=== PATIENT | female | born 1930 | race Caucasian/White ===

== ENCOUNTER 2019-09-01 20:54 | Observation (INO) ==
--- NOTE | 2019-09-01 21:18 | Emergency Department Note ---
ED Disposition Clinical Impression: UGIB (upper gastrointestinal bleed), Paraesophageal hernia, Esophagitis, Renal insufficiency Disposition: Admitted as Observation Condition on Discharge: Fair Instructions: DI for Gastrointestinal Bleeding Referrals: Mark Coleman MD [Primary Care Provider] - - Critical Care Critical Care Time: No Attestation: On 09/01/19, the high probability of a clinically significant, sudden or life threatening deterioration of the following system(s) required my full and direct attention, intervention and personal management. The time I documented below is in addition to time spent performing reported procedures but includes the following listed in this critical care notation. Medical Decision Making - Medical Records Medical records reviewed: Yes: I reviewed the patient's medical records. - [place] Inquiry Pt receiving controlled substance: No Vital Signs: 09/01/19 21:02 Temperature 98.9 F Temperature Source Oral Pulse Rate [Left Radial] 100 H Respiratory Rate 17 Blood Pressure [Right Arm] 127/69 Blood Pressure Mean [Right Arm] 88 Blood Pressure Source [Right Arm] Automatic Cuff Blood Pressure Position [Right Arm] Sitting 02 Sat by Pulse Oximetry 93 L - Lab Data Lab results reviewed: Yes: I reviewed the patient's lab results. Lab Results 09/01/19 21:25: WBC 12.2 H, RBC 4.97, Hgb 14.7, Hct 47.3 H, MCV 95.2, MCH 29.5, MCHC 31.0 L, RDW 13.7, Plt Count 279, MPV 9.2, Neut % (Auto) 78.5, Lymph % (Auto) 12.6, [place] % (Auto) 6.6, Eos % (Auto) 1.8, Baso % (Auto) 0.6, Neut # (Auto) 9.6 H, Lymph # (Auto) 1.5, [place] # (Auto) 0.8, Eos # (Auto) 0.2, Baso # (Auto) 0.1 09/01/19 21:25: Sodium 142, Potassium 4.2, Chloride 105, Carbon Dioxide 28, Anion Gap 13.2, BUN 27 H, Creatinine 1.22 H, Estimated Creat Clear 41, Estimated GFR 42 L, Est GFR ( Amer) 50 L, Glucose 168 H, Calcium 9.1, Total Bilirubin 0.3, AST 13 L, ALT 18, Alkaline Phosphatase 86, Total Protein 7.8, Albumin 3.3 L, Globulin 4.5 H, Albumin/Globulin Ratio 0.7 L, Amylase 37, Lipase 134 09/01/19 22:00: Stool Occult Blood Positive A Result diagrams: 09/01/19 21:25 09/01/19 21:25 Orders (Tests/Meds): ED MEDICATIONS Generic Name Dose Route Start Last Admin Trade Name Freq PRN Reason Stop Dose Admin Sodium Chloride 1,000 mls @ 100 mls/hr 09/01/19 21:15 09/01/19 22:32 Sod Chlor 0.9% 1000ml Bag IV 10/01/19 21:14 100 mls/hr .Q10H CHRAIS Administration Sodium Chloride 8 ml 09/01/19 21:57 Sodium Chloride 0.9% 10ml Vial IV 10/01/19 21:56 NEEDED PRN dilute pepcid Discontinued Medications Generic Name Dose Route Start Last Admin Trade Name Freq PRN Reason Stop Dose Admin Famotidine 20 mg 09/01/19 21:57 09/01/19 22:32 Pepcid 20mg/2ml Vial IV 09/01/19 21:58 20 mg ONCE ONE Administration Metoclopramide HCl 10 mg 09/01/19 21:57 09/01/19 22:32 Reglan 10mg/2ml Vial IVP 09/01/19 21:58 10 mg ONCE ONE Administration Ondansetron HCl 4 mg 09/01/19 21:58 09/01/19 22:32 Zofran 4mg/2ml Vial IV 09/01/19 21:59 4 mg ONCE ONE Administration ORDERS Category Date Time Status CT abdomen pelvis wo con Stat Cat Scan 09/01/19 21:15 Taken XR chest AP Stat Exams 09/01/19 21:23 Taken - Radiology Data #1 Image(s): Chest Image Reviewed: Yes I reviewed the patient's radiology image Preliminary Findings: Normal/NAD - CT Data CT Scan: Abdomen, Pelvis Time Received: 22:[address] Reviewed: Yes: I have viewed the radiologist's interpretation Preliminary Findings: Abnormal (esophagitis ) GI Bleed HPI - General Chief complaint: GI Bleed Stated complaint: vomiting blood Time Seen by Provider: 09/01/19 21:10 Mode of Arrival: EMS Source of Information: Patient, Relative, EMS, Medical Record Limitations: No Limitations Description of Symptoms (Recalled from ER Triage Doc. by RN): per nurse at [facility] pt has been vomiting blood since at least 3pm when she arrived on shift today but is unsure how long before that. - History of Present Illness HPI Narrative: has bloody vomitus since this afternoon with upper abd pain at [facility] - no melena reported MD complaint: gross hematemesis Onset (ago): hour(s) Consistency: intermittent Severity: moderate Associated symptoms: abdominal pain Treatments Prior to Arrival: none - Related Data Allergies Allergy/AdvReac Type Severity Reaction Status Date / Time penicillin G [PENICILLIN G] Allergy Unknown Verified 09/01/19 22:31 CHOCOLATE (FOOD) AdvReac Mild ACID REFLUX Uncoded 11/11/17 14:10 [facility] History - Hepatitis A Screen Drug use history?: No High risk sexual behaviors?: No History of sexually transmitted infection?: No Currently employed?: No Childcare worker?: No Do you have indoor plumbing?: Yes Do you have electricity?: Yes Attestation statement:: This patient has been screened for Hepatitis A risk factors. I have reviewed the patient's past medical history: Yes - Social History Alcohol Intake: never Occupational Status: other ROS Obtained: Yes All systems reviewed & no additional complaints - Constitutional Constitutional: Denies fever(s) - Eyes Eyes: Denies change in vision - ENT Ears, Nose, Mouth, and Throat: Denies sore throat - Cardiovascular Cardiovascular: Denies chest pain - Respiratory Respiratory: No cough - Gastrointestinal Gastrointestingal: Reports: as per HPI, abdominal pain, vomiting blood, nausea, vomiting - Genitourinary Female Genitourinary: Denies hematuria - Musculoskeletal Musculoskeletal: Denies joint pain - Integumentary/Breasts Skin/Breast: Denies rash - Neurologic Neurologic: Denies seizure-like activity Physical Exam - General General appearance: alert, in no apparent distress - Head Head exam: normocephalic - Eye Eye exam: Present: PERRL, EOMI. Absent: scleral icterus - ENT ENT exam: Present: mucous membranes dry - Neck Neck exam: Present: trachea midline - Respiratory Respiratory exam: Present: other (dec bs bilat ). Absent: respiratory distress - Cardiovascular Cardiovascular exam: Present: regular rate, systolic murmur, +S4 - Abdominal Exam Abdominal exam: Present: soft, tenderness, diminished bowel sounds Abdominal tenderness: Present: epigastrium, moderate - Extremities Exam Extremities exam: Absent: calf tenderness - Neurological Exam Neurological exam: Present: alert, CN II-XII intact - Skin Skin exam: Absent: rash
[2019-09-01 21:35] LABS: Basophils # 0.1 K/mm3 (0-0.2); Basophils % 0.6 % (0.1-2.0); Eosinophils # 0.2 K/mm3 (0.0-0.4); Eosinophils % 1.8 % (0.1-12.0); Hematocrit 47.3 % (37.0-47.0); Hemoglobin 14.7 g/dL (12.2-16.2); Lymphocytes # 1.5 K/mm3 (0.7-4.5); Lymphocytes % 12.6 % (10-50); Mean Corpuscular Volume 95.2 fl (81-99); Mean Platelet Volume 9.2 fl (7.4-10.4); Monocytes # 0.8 K/mm3 (0.1-1.0); Monocytes % 6.6 % (1.7-9.3); Neutrophils # 9.6 K/mm3 (1.8-7.8); Neutrophils % 78.5 % (37.0-80.0); Platelet Count 279 K/mm3 (142-424); Red Blood Count 4.97 M/mm3 (4.20-5.40); Red Cell Distribution Width 13.7 % (11.5-17.5); White Blood Count 12.2 K/mm3 (4.8-10.8)
[2019-09-01 21:42] LABS: Albumin Level 3.3 gm/dL (3.4-5.0); Albumin/Globulin Ratio 0.7 (1.1-1.8); Anion Gap 13.2 mEq/L (5-15); Bilirubin,Total 0.3 mg/dL (0.2-1.0); Calcium 9.1 mg/dL (8.5-10.1); Globulin 4.5 gm/dl (1.3-3.2); Total Protein,Serum 7.8 gm/dL (6.4-8.2)
[2019-09-02 07:42] LABS: Basophils # 0.1 K/mm3 (0-0.2); Basophils % 0.6 % (0.1-2.0); Eosinophils # 0.3 K/mm3 (0.0-0.4); Eosinophils % 2.4 % (0.1-12.0); Hematocrit 40.7 % (37.0-47.0); Lymphocytes # 1.8 K/mm3 (0.7-4.5); Lymphocytes % 16.7 % (10-50); Mean Corpuscular HGB Conc 30.8 g/dL (31.8-35.4); Mean Corpuscular Volume 94.8 fl (81-99); Mean Platelet Volume 9.3 fl (7.4-10.4); Monocytes # 1.2 K/mm3 (0.1-1.0); Neutrophils # 7.3 K/mm3 (1.8-7.8); Neutrophils % 69.4 % (37.0-80.0); Platelet Count 204 K/mm3 (142-424); Red Blood Count 4.29 M/mm3 (4.20-5.40); Red Cell Distribution Width 13.9 % (11.5-17.5); White Blood Count 10.5 K/mm3 (4.8-10.8)
[2019-09-02 07:43] LABS: Hemoglobin 12.5 g/dL (12.2-16.2)
--- NOTE | 2019-09-02 07:56 | H&P/Discharge Summary ---
General - General Admission date:: 09/02/19 Discharge date: 09/02/19 *Admission Date: 09/01/19 *Chief complaint: Vomiting blood *History of present illness: 89-year-old white female, resident of the [facility], who has made a DNR status for several years, was brought to the emergency department because she had been reportedly vomiting blood for 5 or 6 hours at the [facility]. Nurses reported that this was "bright red blood" and she had done this since 3 PM yesterday. In the emergency room she was found to be hemodynamically stable, her initial hemoglobin was 14 which certainly spoke against a rapid upper GI bleed. She was found to have guaiac positive stools, was admitted to hospital for further diagnostic testing and observation overnight. This morning she states she feels good except she is "sleepy." [facility] History I have reviewed the patient's past medical history: Yes Medical History: Reports:: Renal Insufficiency *Have you ever received a pneumonia vaccine?: No (unable to obtain) *Have you received a flu vaccine this season?: No (unable to obtain) Other Medical History: Reports: Anemia - *Social History Alcohol Intake: never *Occupational Status:: retired Housing: [facility] *Travel in the last 8 weeks: None Family Hx:: Unable to obtain Review of Systems - Review of Systems Review of systems:: pertinent systems reviewed and negative unless documented below - *Neurologic Denies seizure-like activity Exam Vital signs and Labs for Last 24 Hours: Temp Pulse Resp BP Pulse Ox 98.8 F 100 H 17 143/78 H 92 L 09/02/19 04:00 09/02/19 04:00 09/02/19 04:00 09/02/19 04:00 09/02/19 04:00 Laboratory Results - last 24 hr 09/01/19 21:25: WBC 12.2 H, RBC 4.97, Hgb 14.7, Hct 47.3 H, MCV 95.2, MCH 29.5, MCHC 31.0 L, RDW 13.7, Plt Count 279, MPV 9.2, Neut % (Auto) 78.5, Lymph % (Auto) 12.6, [place] % (Auto) 6.6, Eos % (Auto) 1.8, Baso % (Auto) 0.6, Neut # (Auto) 9.6 H, Lymph # (Auto) 1.5, [place] # (Auto) 0.8, Eos # (Auto) 0.2, Baso # (Auto) 0.1 09/01/19 21:25: Sodium 142, Potassium 4.2, Chloride 105, Carbon Dioxide 28, Anion Gap 13.2, BUN 27 H, Creatinine 1.22 H, Estimated Creat Clear 41, Estimated GFR 42 L, Est GFR ( Amer) 50 L, Glucose 168 H, Calcium 9.1, Total Bilirubin 0.3, AST 13 L, ALT 18, Alkaline Phosphatase 86, Total Protein 7.8, Albumin 3.3 L, Globulin 4.5 H, Albumin/Globulin Ratio 0.7 L, Amylase 37, Lipase 134 09/01/19 22:00: Stool Occult Blood Positive A 09/02/19 02:15: Troponin I < 0.02 09/02/19 07:08: WBC 10.5, RBC 4.29, Hgb 12.5 D, Hct 40.7, MCV 94.8, MCH 29.2, MCHC 30.8 L, RDW 13.9, Plt Count 204 D, MPV 9.3, Neut % (Auto) 69.4, Lymph % (Auto) 16.7, [place] % (Auto) 11.0 H, Eos % (Auto) 2.4, Baso % (Auto) 0.6, Neut # (Auto) 7.3, Lymph # (Auto) 1.8, [place] # (Auto) 1.2 H, Eos # (Auto) 0.3, Baso # (Auto) 0.1 I & O for Last 24 hours: Intake & Output 08/30/19 08/31/19 09/01/19 09/02/19 11:59 11:59 11:59 11:59 Intake Total 544 / 544 Output Total 600 / 600 Balance -56 / -56 Weight 148 lb 2 oz Narrative: Patient is sleeping but oriented x2 when arousable. She recognizes me. Oropharynx clear, no evidence of blood in the oropharynx. Heart rate regular. Lungs are clear bilaterally. Abdomen soft and nontender. Lorenzo catheter draining clear yellow urine. Perfusion is good in the extremities. Able to move all extremities well. Hospital Course Hospital Course: Patient was admitted. Overnight she did well, no evidence of bleeding. Hemoglobin this morning is 12.5 g. Given this patient's advanced age, DNR status and multiple comorbidities, endoscopy is not in this patient's best interest. She clearly does not have a major bleed given the lack of significant hemoglobin drop. We will transfer back to [facility] with proton pump inhibitor, H2 corbin and Carafate and check a hemoglobin next week. We will reintroduce soft mechanical diet. Otherwise medications will remain the same. Continue to respect her DNR status. Results Labs on day of discharge: Labs from last 24 hours 09/02/19 09/02/19 09/01/19 07:08 02:15 22:00 WBC 10.5 RBC 4.29 Hgb 12.5 D Hct 40.7 MCV 94.8 MCH 29.2 MCHC 30.8 L RDW 13.9 Plt Count 204 D MPV 9.3 Neut % (Auto) 69.4 Lymph % (Auto) 16.7 [place] % (Auto) 11.0 H Eos % (Auto) 2.4 Baso % (Auto) 0.6 Neut # (Auto) 7.3 Lymph # (Auto) 1.8 [place] # (Auto) 1.2 H Eos # (Auto) 0.3 Baso # (Auto) 0.1 Sodium Potassium Chloride Carbon Dioxide Anion Gap BUN Creatinine Estimated Creat Clear Estimated GFR Est GFR ( Amer) Glucose Calcium Total Bilirubin AST ALT Alkaline Phosphatase Troponin I < 0.02 Total Protein Albumin Globulin Albumin/Globulin Ratio Amylase Lipase Stool Occult Blood Positive A 09/01/19 09/01/19 21:25 21:25 WBC 12.2 H RBC 4.97 Hgb 14.7 Hct 47.3 H MCV 95.2 MCH 29.5 MCHC 31.0 L RDW 13.7 Plt Count 279 MPV 9.2 Neut % (Auto) 78.5 Lymph % (Auto) 12.6 [place] % (Auto) 6.6 Eos % (Auto) 1.8 Baso % (Auto) 0.6 Neut # (Auto) 9.6 H Lymph # (Auto) 1.5 [place] # (Auto) 0.8 Eos # (Auto) 0.2 Baso # (Auto) 0.1 Sodium 142 Potassium 4.2 Chloride 105 Carbon Dioxide 28 Anion Gap 13.2 BUN 27 H Creatinine 1.22 H Estimated Creat Clear 41 Estimated GFR 42 L Est GFR ( Amer) 50 L Glucose 168 H Calcium 9.1 Total Bilirubin 0.3 AST 13 L ALT 18 Alkaline Phosphatase 86 Troponin I Total Protein 7.8 Albumin 3.3 L Globulin 4.5 H Albumin/Globulin Ratio 0.7 L Amylase 37 Lipase 134 Stool Occult Blood DS: Diagnosis - Discharge Diagnosis (1) Esophagitis Status: Acute (2) Renal insufficiency Status: Acute (3) UGIB (upper gastrointestinal bleed) Status: Acute Discharge Plan - Patient Discharge Instructions ACTIVITY: Continue current activity DIET: continue same diet Patient Instructions: Hiatal Hernia, DI for Hiatal Hernia, Gastrointestinal Bleeding, DI for Esophagitis - Follow up Plan Follow up with: Janice Delgadillo APRN [Nurse Practitioner] - Disposition: er [facility] Home Medications: Home Medications Medication Instructions Recorded Confirmed Type Fexofenadine HCl 180 mg PO DAILY 09/02/19 09/02/19 History Loperamide HCl [Imodium 2 mg 4 mg PO NEEDED PRN 09/02/19 09/02/19 History capsule] Losartan Potassium 50 mg PO DAILY 09/02/19 09/02/19 History Omeprazole [Omeprazole 20mg Tab] 20 mg PO DAILY #60 tab 09/02/19 Rx Saccharomyces Boulardii [Florastor] 250 mg PO DAILY 09/02/19 09/02/19 History Sucralfate [Carafate 1gm Tab] 1 gm PO ACHS #120 tablet 09/02/19 Rx Tramadol HCl [Tramadol 50mg 1 tab PO BID 09/02/19 09/02/19 History Tab] Vitamin D3/Folic Acid [Folvite-D 1,000 mg PO DAILY 09/02/19 09/02/19 History 1,000-94.375 Mcg Tab] raNITIdine HCl [Ranitidine HCl] 150 mg PO BID #60 tablet 09/02/19 Rx Prescriptions/Medication Reconciliation: New Omeprazole [Omeprazole 20mg Tab] 20 mg PO DAILY #60 tab raNITIdine HCl [Ranitidine HCl] 150 mg PO BID #60 tablet Sucralfate [Carafate 1gm Tab] 1 gm PO ACHS #120 tablet Continued Tramadol HCl [Tramadol 50mg Tab] 1 tab PO BID Saccharomyces Boulardii [Florastor] 250 mg PO DAILY Losartan Potassium 50 mg PO DAILY Loperamide HCl [Imodium 2 mg capsule] 4 mg PO NEEDED PRN PRN Reason: Diarrhea Fexofenadine HCl 180 mg PO DAILY Vitamin D3/Folic Acid [Folvite-D 1,000-94.375 Mcg Tab] 1,000 mg PO DAILY - Problem Reconciliation Problems Reviewed?: Yes
[2019-09-02 08:07] LABS: Anion Gap 11.9 mEq/L (5-15); Blood Urea Nitrogen 23 mg/dL (7-18); Carbon Dioxide 25 mmol/L (21.0-32.0); Chloride 111 mmol/L (98-107); Glucose 101 mg/dL (74-106); Sodium 144 mmol/L (136-145)
--- NOTE | 2019-09-02 08:13 | Pharmacy Consult Notes ---
[facility] Pharmacy VTE Monitoring - Patient Demographics Admission date: 09/02/19 Report Date: 09/02/19 Time: 08:13 Allergies/Adverse Reactions: Patient Allergies penicillin G [PENICILLIN G] Allergy (Unknown, Verified 09/01/19 22:31) CHOCOLATE (FOOD) Adverse Reaction (Mild, Uncoded 11/11/17 14:10) ACID REFLUX Height: 1.68 m Weight: 67.188 kg Patient Problems: Current Active Problems UGIB (upper gastrointestinal bleed) (Acute) Paraesophageal hernia (Acute) Esophagitis (Acute) Renal insufficiency (Acute) - VTE Risk Labs: VTE Related Lab Results Hgb 12.5 g/dL (12.2-16.2) D 09/02/19 07:08 Hct 40.7 % (37.0-47.0) 09/02/19 07:08 Plt Count 204 K/mm3 (142-424) D 09/02/19 07:08 BUN 23 mg/dL (7-18) H 09/02/19 07:08 Creatinine 1.10 mg/dL (0.55-1.02) H 09/02/19 07:08 Estimated Creat Clear 37 mL/min (50-200) 09/02/19 07:08 Was VTE Risk Assessment Performed: No Clinical Trial Participant: No - Prophylaxis VTE Prophylaxis Ordered?: Yes Types of VTE Prophylaxis: TEDS Knee High
--- NOTE | 2019-09-02 19:21 | Electrocardiograph Report ---
APPROVED REPORT Exam: Resting ECG HR:90 bpm ECG Measurements Heart Rate 90 AXES QRSd 70 QRS 39 QT 354 T46 QTc 433 <Conclusion> Sinus Rhythm ,First Degree AV Block Nonspecific ST and T wave abnormality Abnormal ECG Electronically signed by : Kevin Fu, 09/02/2019 19:20:40
== END 2019-09-02 11:10 ==
LOC: 2ND 20:54 → ER 20:54 → 2ND 09-02 00:51
PROVIDERS: ADMIT Emergency Medicine; ATTEND Internal Medicine Adolescent Medicine
CPT/HCPCS: 36415; 71010; 71045; 74176; 80048; 80053; 81001; 82150; 82272; 83690; 84484; 85025; 87070; 87086; 87205; 93005; 96365; 99284; G0328; G0378; J2405